=== PATIENT | male | born 1990 ===

== ENCOUNTER 2017-02-05 20:24 | Emergency (ER) | payer MEDICAID ==
[2017-02-05 20:32] VITALS: BP 146/89; PULSE 92; RESP 16; TEMP 98.1; O2SAT 98
--- NOTE | 2017-02-06 00:04 | C.PDOC ---
History Of Present Illness 26 y/o male with a HX of epilepsy, presents to the ER for med refill of phenobarbital. Patient was released from longterm on 01/21/17 and reports several seizures since his release. He notes running out of phenobarbital, which prompted this visit. Patient has no somatic complaints at this time. pt still has tegretol. Time Seen by Provider: 02/05/17 21:41 Chief Complaint (Nursing): Med Refill History Per: Patient History/Exam Limitations: no limitations Severity: None Recent travel outside of the [place]: No Additional History Per: Patient Past Medical History Reviewed: Historical Data, Nursing Documentation, Vital Signs Vital Signs: Last Vital Signs Temp 98.1 F 02/05/17 20:25 Pulse 92 H 02/05/17 20:25 Resp 16 02/05/17 20:25 BP 146/89 02/05/17 20:25 Pulse Ox 98 02/07/17 10:15 - Medical History PMH: Asthma, HTN, Seizures Family History: States: Unknown Family Hx - Social History Hx Alcohol Use: No Hx Substance Use: No - Immunization History Hx Tetanus Toxoid Vaccination: No Hx Influenza Vaccination: No Hx Pneumococcal Vaccination: No Review Of Systems Constitutional: Negative for: Other (Head injury) Cardiovascular: Negative for: Chest Pain Respiratory: Negative for: Cough Neurological: Positive for: Seizures (several seziures in last 1-2 weeks, none today). Negative for: Confusion, Altered Mental Status, Headache, Dizziness Physical Exam - Physical Exam Appears: Non-toxic, No Acute Distress Skin: Warm, Dry Head: Atraumatic, Normacephalic Chest: Symmetrical, No Tenderness Cardiovascular: Rhythm Regular, No Murmur Respiratory: Normal Breath Sounds, No Wheezing Gastrointestinal/Abdominal: Soft, No Tenderness Neurological/Psych: Oriented x3, Normal Speech, Normal Cognition, Normal Cranial Nerves, Normal Motor, Normal Sensation, Other (NO focal deficit) ED Course And Treatment O2 Sat by Pulse Oximetry: 98 (RA) Pulse Ox Interpretation: Normal Medical Decision Making Medical Decision Making: Impression: 26 y/o male here for med refill of phenobarbital. Plans: * Refill of meds * Labs for phenobarbital pt reports being compliant with medications; sts he was released from longterm on jan 21, and has had seizures since then. Tegretol level in range; phenobarb level sent out. pt sts he has Tegretol at home, will give rx for one week phenobarb with clinic and neuro f/u Disposition Counseled Patient/Family Regarding: Studies Performed, Diagnosis, Need For Followup, Rx Given - Disposition Referrals: Mohan Barkley MD [Staff Provider] - [facility] [Outside] [facility] [Outside] Disposition: HOME/ ROUTINE Disposition Time: 00:04 Condition: STABLE Additional Instructions: Take medications as prescribed. Call clinic and Dr Barkley on morning to make soonest appointments. Return to ER for any worsening symptoms. Prescriptions: Phenobarbital 97.2 mg PO BID #14 tablet Instructions: Phenobarbital (By mouth) Forms: [facility] (Sudanese), General Discharge Instructions - Clinical Impression Clinical Impression: Encounter for medication refill - Scribe Statement The provider has reviewed the documentation as recorded by the Scribe Son rizzo All medical record entries made by the Scribe were at my direction and personally dictated by me. I have reviewed the chart and agree that the record accurately reflects my personal performance of the history, physical exam, medical decision making, and the department course for this patient. I have also personally directed, reviewed, and agree with the discharge instructions and disposition.
== END 2017-02-06 00:11 | disposition home or self-care (01) ==
LOC: C.ER 20:24
DX: Z76.0 Encounter for issue of repeat prescription (principal)

== ENCOUNTER 2017-03-31 19:24 | Inpatient (IN) | payer MEDICAID ==
[2017-03-31] MEDS ORDERED: Sodium Chloride 0.9% 1,000 ML IV ONE (19:59)
--- NOTE | 2017-03-31 20:03 | C.PDOC ---
History Of Present Illness 26 year old male who presents to the ER after having a seizure earlier today. Patient also had a generalized tonic clonic seizure while in the ER; 2ml of ativan administered. Patient was released from long term on 01/30 and takes phenobarb. Patient has not verbalized any complaints at this time. Time Seen by Provider: 03/31/17 19:59 Chief Complaint (Nursing): Weakness/Neurological Deficit History Per: Patient History/Exam Limitations: no limitations Onset/Duration Of Symptoms: Hrs Current Symptoms Are (Timing): Worse Activity At Onset Of Symptoms: Lying (While in ER), Other (Not known(earlier today)) Seizure Or Post-ictal Symptoms: Generalized Seizure Activity. denies: Post- ictal Period Possible Causative Factor(s): Other (Not known) Severity: Mild Pain Scale Rating Of: 4 Recent travel outside of the [place]: No - Symptoms Of CVA Associated Symptoms: denies: Impaired Speech, Seizure Activity, New Vision Deficit(Left), New Vision Deficit(Right), Decreased Ability To Walk, New Confusion Past Medical History Reviewed: Historical Data, Nursing Documentation, Vital Signs Vital Signs: Last Vital Signs Temp 97.7 F 03/31/17 19:36 Pulse 66 03/31/17 21:06 Resp 18 03/31/17 21:06 BP 143/74 03/31/17 21:06 Pulse Ox 100 03/31/17 21:06 - Medical History PMH: Asthma, HTN, Seizures Surgical History: No Surg Hx Family History: States: No Known Family Hx - Social History Hx Alcohol Use: No Hx Substance Use: No - Immunization History Hx Tetanus Toxoid Vaccination: No Hx Influenza Vaccination: No Hx Pneumococcal Vaccination: No Review Of Systems Constitutional: Negative for: Fever Eyes: Negative for: Redness Cardiovascular: Negative for: Chest Pain Respiratory: Negative for: Shortness of Breath, Wheezing Gastrointestinal: Negative for: Vomiting Musculoskeletal: Negative for: Back Pain Skin: Negative for: Rash Neurological: Positive for: Seizures Physical Exam - Physical Exam Appears: In Acute Distress Skin: Warm, Dry Head: Normacephalic Eye(s): bilateral: Normal Inspection Oral Mucosa: Moist Neck: Supple Chest: Symmetrical Cardiovascular: Rhythm Regular Respiratory: No Rales, No Rhonchi, No Wheezing Gastrointestinal/Abdominal: Soft, No Tenderness Back: No CVA Tenderness Extremity: Normal ROM Extremity: Bilateral: Atraumatic, Normal Color And Temperature Pulses: Left Dorsalis Pedis: Normal, Right Dorsalis Pedis: Normal Neurological/Psych: Oriented x3, Other (post ictal) Gait: Unable To Assess ED Course And Treatment - Laboratory Results Result Diagrams: 03/31/17 20:16 03/31/17 20:16 O2 Sat by Pulse Oximetry: 96 (Room air) Pulse Ox Interpretation: Normal Progress Note: Blood work and urinalysis ordered. Ativan and IV fluids administered. Critical Care Time - Critical Care Note Total Time (in mins): 30 Documented critical care: time excludes all time spent performing seperately billable procedures. Disposition Discussed With : Boris Milian Comment: accepted the pt on his service and took over the care at 10:06 PM Doctor Will See Patient In The: ED Counseled Patient/Family Regarding: Studies Performed, Diagnosis - Disposition Disposition: HOSPITALIZED Disposition Time: 20:02 Condition: GUARDED Forms: [facility] (Romanian) - Clinical Impression Clinical Impression: Intractable seizure disorder - Scribe Statement The provider has reviewed the documentation as recorded by the Scribe Alistair Benoit All medical record entries made by the Scribe were at my direction and personally dictated by me. I have reviewed the chart and agree that the record accurately reflects my personal performance of the history, physical exam, medical decision making, and the department course for this patient. I have also personally directed, reviewed, and agree with the discharge instructions and disposition.
[2017-03-31 20:22] LABS: BASO % 0.5 % (0.0-2.0); EOS # 0.1 K/uL (0.0-0.7); EOS % 1.9 % (0.0-4.0); HEMATOCRIT 44.9 % (35.0-51.0); LYMPH # 1.8 K/uL (1.0-4.3); LYMPH % 22.9 % (20.0-40.0); MEAN CELL VOLUME 78.7 fL (80.0-94.0); MEAN CORPUSCULAR HEMOGLOBIN 26.1 pg (27.0-31.0); MEAN CORPUSCULAR HGB CONC 33.2 g/dL (33.0-37.0); MEAN PLATELET VOLUME 8.3 fL (7.2-11.7); MONO # 0.9 K/uL (0.0-0.8); MONO % 11.4 % (0.0-10.0); RED CELL DISTRIBUTION WIDTH 15.2 % (11.5-14.5); WHITE BLOOD COUNT 7.9 K/uL (4.8-10.8)
[2017-03-31 20:30] LABS: CHLORIDE 104 mmol/L (98-107)
[2017-03-31 20:31] LABS: POTASSIUM 4.5 mmol/L (3.6-5.2); SODIUM 136 mmol/L (132-148)
[2017-03-31 20:33] LABS: ALB/GLOB RATIO 1.2 (1.0-2.1); BILIRUBIN,TOTAL 0.6 mg/dL (0.2-1.3); CARBON DIOXIDE 22 mmol/L (22-30); GFR AFRICAN-AMERICAN > 60; TOTAL PROTEIN 8.5 g/dL (6.3-8.3)
[2017-03-31 20:34] LABS: ALCOHOL SERUM < 10 mg/dl (0-10); ALKALINE PHOSPHATASE 94 U/L (38-126); ALT/SGPT 73 U/L (21-72); AST/SGOT 44 U/L (17-59); BLOOD UREA NITROGEN 20 mg/dL (9-20); CALCIUM 9.3 mg/dl (8.6-10.4); GLUCOSE,RANDOM 70 mg/dL (75-110)
[2017-03-31 21:12] LABS: URINE BACTERIA RARE (<OCC); URINE BILIRUBIN NEGATIVE (NEGATIVE); URINE BLOOD NEGATIVE (NEGATIVE); URINE COLOR Yellow (YELLOW); URINE GLUCOSE (UA) NORMAL (Normal); URINE KETONE NEGATIVE (NEGATIVE); URINE LEUKOCYTE ESTERASE NEG Leu/uL (Negative); URINE PROTEIN NEGATIVE (NEGATIVE); URINE UROBILINOGEN NORMAL mg/dL (0.2-1.0); WBC URINE 1 /hpf (0-5)
[2017-03-31 21:15] LABS: RBC URINE 4 /hpf (0-3)
--- NOTE | 2017-03-31 22:16 | CP.PCM.CON ---
History of Present Illness - History of Present Illness History of Present Illness: 26 y/o male with h/o HTN and Siezure brought in following sizure.Patient states that he was walking and had siezure,unsure whether he fell or hurt himself. Has frequent siezures,admitted last month with siezures.States he is compliant with meds and denies drug use.Urine toxicology is positive for coccaine and Barbiturates.Patient had a generalized siezure in ER,recieved lorazepam and Phenobarbital uses clonidine PRN for HTN ."takes medications when he starts sweating" while talking he wanted to know how much ativan he had got Review of Systems - Constitutional Constitutional: absent: Anorexia, Chills, Fever, Lethargy - EENT Eyes: absent: Blurred Vision, Photophobia Ears: absent: Decreased Hearing, Dizziness Nose/Mouth/Throat: absent: Nasal Congestion, Dry Mouth, Tongue Swelling, Neck Pain - Cardiovascular Cardiovascular: absent: Chest Pain, Chest Pain with Activity, Edema, Orthopnea - Respiratory Respiratory: absent: Cough, Dyspnea, Dyspnea on Exertion - Gastrointestinal Gastrointestinal: absent: Abdominal Pain, Loose Stools, Nausea, Vomiting - Genitourinary Genitourinary: absent: Change in Urinary Stream, Hematuria - Integumentary Integumentary: absent: Bleeding Lesions, Dry Skin - Neurological Neurological: absent: Abnormal Hearing, Abnormal Speech, Confusion, Dizziness, Numbness, Focal Weakness, Memory Loss - Endocrine Endocrine: absent: Polyphagia, Polyuria - Hematologic/Lymphatic Hematologic: absent: Easy Bleeding Past Patient History - Past Social History Smoking Status: Light Smoker < 10 Cigarettes Daily Alcohol: None Drugs: Denies, Other (urine toxicology positive) Home Situation {Lives}: With Family - CARDIAC Hx Hypertension: Yes - PULMONARY Hx Asthma: Yes - NEUROLOGICAL Hx Seizures: Yes - PSYCHIATRIC Hx Substance Use: No - SURGICAL HISTORY Hx Surgeries: No Meds Allergies/Adverse Reactions: Allergies Allergy/AdvReac Type Severity Reaction Status Date / Time seafood Allergy Mild Uncoded 03/31/17 19:41 - Medications Medications: Current Medications Carbamazepine (Tegretol-Xr) 200 mg PO Q12 LIZ Physical Exam - Constitutional Appears: Non-toxic, No Acute Distress - Head Exam Head Exam: ATRAUMATIC, NORMAL INSPECTION, NORMOCEPHALIC - Eye Exam Eye Exam: EOMI, PERRL. absent: Nystagmus, Scleral icterus Pupil Exam: NORMAL ACCOMODATION - ENT Exam ENT Exam: Mucous Membranes Moist, Normal Exam - Neck Exam Neck exam: Positive for: Full Rom, Normal Inspection - Respiratory Exam Respiratory Exam: Clear to Auscultation Bilateral, NORMAL BREATHING PATTERN. absent: Rhonchi, Wheezes - Cardiovascular Exam Cardiovascular Exam: REGULAR RHYTHM. absent: JVD - GI/Abdominal Exam GI & Abdominal Exam: Normal Bowel Sounds, Soft. absent: Organomegaly, Tenderness - Rectal Exam Rectal Exam: Deferred - Extremities Exam Extremities exam: Positive for: full ROM, normal inspection, pedal pulses present. Negative for: calf tenderness - Back Exam Back exam: NORMAL INSPECTION - Neurological Exam Neurological exam: Alert, CN II-XII Intact, Oriented x3, Reflexes Normal - Psychiatric Exam Psychiatric exam: Normal Affect - Skin Skin Exam: Normal Color, Warm Results - Vital Signs Recent Vital Signs: Last Vital Signs Temp 97.7 F 03/31/17 19:36 Pulse 66 03/31/17 21:06 Resp 18 03/31/17 21:06 BP 143/74 03/31/17 21:06 Pulse Ox 96 03/31/17 22:12 - Labs Result Diagrams: 03/31/17 20:16 03/31/17 20:16 Labs: Laboratory Results - last 24 hr 03/31/17 03/31/17 03/31/17 20:02 20:16 20:16 WBC 7.9 RBC 5.71 Hgb 14.9 Hct 44.9 MCV 78.7 L MCH 26.1 L MCHC 33.2 RDW 15.2 H Plt Count 278 MPV 8.3 Neut % (Auto) 63.3 Lymph % (Auto) 22.9 [place] % (Auto) 11.4 H Eos % (Auto) 1.9 Baso % (Auto) 0.5 Neut # 5.0 Lymph # 1.8 [place] # 0.9 H Eos # 0.1 Baso # 0.0 Sodium 136 Potassium 4.5 Chloride 104 Carbon Dioxide 22 Anion Gap 14 BUN 20 Creatinine 1.0 Est GFR ( Amer) > 60 Est GFR (Non-Af Amer) > 60 POC Glucose (mg/dL) 52 L Random Glucose 70 L Calcium 9.3 Total Bilirubin 0.6 AST 44 ALT 73 H Alkaline Phosphatase 94 Total Protein 8.5 H Albumin 4.7 Globulin 3.9 Albumin/Globulin Ratio 1.2 Urine Color Urine Clarity Urine pH Ur Specific [place] Urine Protein Urine Glucose (UA) Urine Ketones Urine Blood Urine Nitrate Urine Bilirubin Urine Urobilinogen Ur Leukocyte Esterase Urine WBC (Auto) Urine RBC (Auto) Urine Bacteria Urine Opiates Screen Urine Methadone Screen Ur Barbiturates Screen Carbamazepine Ur Phencyclidine Scrn Ur Amphetamines Screen U Benzodiazepines Scrn U Oth Cocaine Metabols U Cannabinoids Screen Alcohol, Quantitative < 10 03/31/17 03/31/17 03/31/17 20:16 20:41 20:41 WBC RBC Hgb Hct MCV MCH MCHC RDW Plt Count MPV Neut % (Auto) Lymph % (Auto) [place] % (Auto) Eos % (Auto) Baso % (Auto) Neut # Lymph # [place] # Eos # Baso # Sodium Potassium Chloride Carbon Dioxide Anion Gap BUN Creatinine Est GFR ( Amer) Est GFR (Non-Af Amer) POC Glucose (mg/dL) Random Glucose Calcium Total Bilirubin AST ALT Alkaline Phosphatase Total Protein Albumin Globulin Albumin/Globulin Ratio Urine Color Yellow Urine Clarity Clear Urine pH 5.0 Ur Specific [place] 1.027 Urine Protein Negative Urine Glucose (UA) Normal Urine Ketones Negative Urine Blood Negative Urine Nitrate Negative Urine Bilirubin Negative Urine Urobilinogen Normal Ur Leukocyte Esterase Neg Urine WBC (Auto) 1 Urine RBC (Auto) 4 H Urine Bacteria Rare Urine Opiates Screen Negative Urine Methadone Screen Negative Ur Barbiturates Screen Positive Carbamazepine 8.9 Ur Phencyclidine Scrn Negative Ur Amphetamines Screen Negative U Benzodiazepines Scrn Negative U Oth Cocaine Metabols Positive U Cannabinoids Screen Negative Alcohol, Quantitative 03/31/17 21:12 WBC RBC Hgb Hct MCV MCH MCHC RDW Plt Count MPV Neut % (Auto) Lymph % (Auto) [place] % (Auto) Eos % (Auto) Baso % (Auto) Neut # Lymph # [place] # Eos # Baso # Sodium Potassium Chloride Carbon Dioxide Anion Gap BUN Creatinine Est GFR ( Amer) Est GFR (Non-Af Amer) POC Glucose (mg/dL) 81 Random Glucose Calcium Total Bilirubin AST ALT Alkaline Phosphatase Total Protein Albumin Globulin Albumin/Globulin Ratio Urine Color Urine Clarity Urine pH Ur Specific [place] Urine Protein Urine Glucose (UA) Urine Ketones Urine Blood Urine Nitrate Urine Bilirubin Urine Urobilinogen Ur Leukocyte Esterase Urine WBC (Auto) Urine RBC (Auto) Urine Bacteria Urine Opiates Screen Urine Methadone Screen Ur Barbiturates Screen Carbamazepine Ur Phencyclidine Scrn Ur Amphetamines Screen U Benzodiazepines Scrn U Oth Cocaine Metabols U Cannabinoids Screen Alcohol, Quantitative - Imaging and Cardiology Chest x-ray Additional comment: ordered Assessment & Plan - Assessment and Plan (Free Text) Assessment: 1.Siezure Disorder admitted with recurrent siezures.?compliance states he is on phenobarb and tegretol reveived IV ativan and Phenobarb in ER will start PO meds 2.HTN-will f/u and start meds as needed 3.Drug abuse-Toxicology positive,patient denies use even after informing of results 4.R/o Hepatitis-drug abuse,increased protien and ALT
--- NOTE | 2017-03-31 22:49 | CT ---
EXAM: CT Head Without Intravenous Contrast CLINICAL HISTORY: 26 years old, male; Signs and symptoms; Syncope and collapse; Additional info: Seizure, fall TECHNIQUE: Axial computed tomography images of the head/brain without intravenous contrast. All CT scans at this facility use one or more dose reduction techniques, viz.: automated exposure control; ma/kV adjustment per patient size (including targeted exams where dose is matched to indication; i.e. head); or iterative reconstruction technique. COMPARISON: No relevant prior studies available. FINDINGS: Brain: No acute intracranial hemorrhage. No significant white matter disease. No edema. Ventricles: No significant ventriculomegaly. Bones: No acute displaced fracture. Sinuses: Unremarkable as visualized. No acute sinusitis. Mastoid air cells: Unremarkable as visualized. No mastoid effusion. IMPRESSION: No acute intracranial hemorrhage, or suspicious mass effect.
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
[2017-04-01 06:39] LABS: BASO % 0.4 % (0.0-2.0); EOS # 0.1 K/uL (0.0-0.7); EOS % 1.4 % (0.0-4.0); HEMATOCRIT 40.9 % (35.0-51.0); LYMPH # 1.9 K/uL (1.0-4.3); LYMPH % 21.7 % (20.0-40.0); MEAN CELL VOLUME 79.6 fL (80.0-94.0); MEAN CORPUSCULAR HEMOGLOBIN 26.6 pg (27.0-31.0); MEAN CORPUSCULAR HGB CONC 33.4 g/dL (33.0-37.0); MEAN PLATELET VOLUME 8.1 fL (7.2-11.7); MONO # 0.5 K/uL (0.0-0.8); MONO % 6.1 % (0.0-10.0)
[2017-04-01 06:49] LABS: CHLORIDE 104 mmol/L (98-107); POTASSIUM 3.7 mmol/L (3.6-5.2); SODIUM 136 mmol/L (132-148)
[2017-04-01 06:51] LABS: AST/SGOT 28 U/L (17-59); BILIRUBIN,TOTAL 0.3 mg/dL (0.2-1.3); CARBON DIOXIDE 22 mmol/L (22-30); GFR AFRICAN-AMERICAN > 60
[2017-04-01 06:52] LABS: ALKALINE PHOSPHATASE 83 U/L (38-126); ALT/SGPT 67 U/L (21-72); BLOOD UREA NITROGEN 14 mg/dL (9-20); CALCIUM 8.9 mg/dl (8.6-10.4); GLUCOSE,RANDOM 92 mg/dL (75-110); MAGNESIUM 1.9 mg/dL (1.6-2.3); PHOSPHOROUS 3.7 mg/dL (2.5-4.5); TOTAL PROTEIN 7.3 g/dL (6.3-8.3)
--- NOTE | 2017-04-01 08:40 | RAD ---
PROCEDURE: CHEST RADIOGRAPH, 1 VIEW HISTORY: Seizures COMPARISON: 03/31/2017 FINDINGS: LUNGS: Mild venous congestion. Patchy increased linear markings seen at the left lung base. Right paratracheal airspace opacity may represent prominent vasculature. PLEURA: No pneumothorax or pleural fluid seen. CARDIOVASCULAR: Normal. OSSEOUS STRUCTURES: No significant abnormalities. VISUALIZED UPPER ABDOMEN: Normal. OTHER FINDINGS: None. IMPRESSION: Mild venous congestion. Patchy increased linear markings seen at the left lung base. Right paratracheal airspace opacity may represent prominent vasculature.
[2017-04-01 08:45] LABS: HEPATITIS A TOTAL ANTIBODY POS (NEGATIVE)
[2017-04-01] MEDS: Magnesium Sulfate 1 gm in D5W 1 GM/100 ML BAG IVPB SCH ×2 (08:50→09:23)
--- NOTE | 2017-04-01 08:57 | CP.PCM.PN ---
Subjective - Date & Time of Evaluation Date of Evaluation: 04/01/17 Time of Evaluation: 08:40 - Subjective Subjective: Hospitalist Progress Note Patient was seen and examined at 8:40 AM ICU Bed #4 26 year old male who was admitted to the ICU 03/31/17 after he stated that he experienced a Seizure. States that he is compliant with his Seizure medications. CT Head showed NO acute intracranial hemorrhage/mass effect. [facility] and was supposed to start mental health/ substance abuse program 04/01/17. Currently upon FULL ROS: NO chest pain NO palpitations NO SOB/Cough NO dysphagia/odynophagia NO abdominal pain NO n/v/d/c (last bowel movement was yesterday and it was normal) NO new changes in vision NO new changes in hearing NO edema NO paresthesias Headache bifrontal last night States that dizziness comes and goes Exam: HEENT: NCA, EOMI, PERRLA, NO cervical lymphadenopathy, NO thyromegaly, NO pharyngeal erythema/exudate, Nasal turbinates are moist/nonerythematous/ nonedematous Cardio: NS1 and NS2, NO M/R/G Respiratory: CTA B/L, NO R/R/W GI: BSx4, Soft, NT, ND, NO HSM, Central ObesityNO guarding/rebound tenderness Ext: Pulses are strong and equal, Capillary Refill is 2 seconds, NO edema Neuro: CN II through XII are grossly intact. Assessment and Plan: 1). Seizure Carbemazepine 200 mg PO Q12H Phenobarbital 97.2 mg PO 2x/day CT Head 03/31/17 showed NO acute intracranial hemorrhage/mass effect F/U further recommendations from Neurology Dr. Mariscal and if cleared by Neurology then will discharge patient Patient stated that he saw his PMD Dr. Williamson on [facility] earlier this month however patient could not provide contact information. I performed Google Search and Found Dr. Thang Williamson [phone] and spoke with Merle at the office and she confirmed that the patient was seen by Dr. Williamson 03/21/17 and that the patient is on the following medications at home: Clonidine 0.3 mg PO 1 tab 2x/day Tegretol ER 400 mg 1 tab PO 2x/day Phenobarbitol 97.2 mg PO 2x/day 2). Cocaine Abuse Urine Drug Screen positive for Cocaine Patient states that he does not do this anymore when I suggested to him that the possible cause of his off/on dizziness and seizure could be the Cocaine abuse. He stated that he does not do Cociane and he would like his UDS repeated and it has been ordered. 3). Anxiety/Depression Home medication list indicated that patient is on Sertraline 100 mg PO 1x/day and Klonopin 0.5 mg PO HS. However these were not on the medication list provided to me by his PMD office mentioned above. ICU Resident Dr. Mercado contacted patient's pharmacies ([email or web address]) to confirm these medications and both pharmacies have no record of any medications being dispensed to this patient. F/U further recommendations from Psychatiry Dr. Boyle 4). Bipolar Disorder See Assessment and Plan #3. 5). Hx Substance Abuse See Assessment and Plan #2 6). HTN ICU resident will confirm medication with Pharmacy 7). Elevated ALT Now normalized 8). Prophylaxis Pepcid 20 mg PO 1x/day Bilateral SCDs Sha Sher D.O. Objective - Vital Signs/Intake and Output Vital Signs (last 24 hours): Temp Pulse Resp BP Pulse Ox 97.4 F L 73 23 144/81 99 04/01/17 08:00 04/01/17 08:02 04/01/17 08:02 04/01/17 08:02 04/01/17 08:02 Intake and Output: 04/01/17 04/01/17 06:59 18:59 Intake Total 1290 Output Total 700 Balance 590 - Medications Medications: Current Medications Carbamazepine (Tegretol-Xr) 200 mg PO Q12 [facility] Last Admin: 03/31/17 22:10 Dose: 200 mg Famotidine (Pepcid) 20 mg PO DAILY [facility] Magnesium Sulfate/Dextrose (Magnesium Sulfate 1 Gm/100 Ml D5w) 1 gm in 100 mls @ 300 mls/hr IVPB Q30M [facility] Stop: 04/01/17 09:19 Last Admin: 04/01/17 08:50 Dose: 300 mls/hr Phenobarbital (Phenobarbital Tab) 97.2 mg PO BID [facility] Last Admin: 03/31/17 23:49 Dose: 97.2 mg Pneumococcal Polyvalent Vaccine (Pneumovax 23 Vaccine) 0.5 ml IM .ONCE ONE Stop: 04/03/17 10:01 - Labs Labs: 04/01/17 06:28 04/01/17 06:28
[2017-04-01 12:12] VITALS: BP 132/91; PULSE 75; RESP 22; O2SAT 95
[2017-04-01 12:17] VITALS: TEMP 97.5
--- NOTE | 2017-04-01 13:37 | CP.PCM.CON ---
History of Present Illness - History of Present Illness History of Present Illness: Mr. Chowdary is a 26-year-old man with a past medical history of epilepsy, on phenobarbital and carbamazepine, who was recently released from senior living, but had an episode of aura of tasting blood, visual hallucinations, confusion and subsequently fell and had a generalized tonic clonic seizure. He had another seizure this morning for which he was treated and is currently at baseline. Review of Systems - Review of Systems All systems: reviewed and no additional remarkable complaints except Past Patient History - Past Medical History & Family History Past Medical History?: Yes - Past Social History Smoking Status: Light Smoker < 10 Cigarettes Daily Alcohol: None Drugs: Denies, Other (urine toxicology positive) Home Situation {Lives}: With Family - CARDIAC Hx Hypertension: Yes - PULMONARY Hx Asthma: Yes - NEUROLOGICAL Hx Seizures: Yes - HEENT Hx HEENT Problems: No - RENAL Hx Chronic Kidney Disease: No - ENDOCRINE/METABOLIC Hx Endocrine Disorders: No - HEMATOLOGICAL/ONCOLOGICAL Hx Blood Disorders: No - INTEGUMENTARY Hx Dermatological Problems: No - MUSCULOSKELETAL/RHEUMATOLOGICAL Hx Falls: Yes - GASTROINTESTINAL Hx Gastrointestinal Disorders: No - GENITOURINARY/GYNECOLOGICAL Hx Genitourinary Disorders: No - PSYCHIATRIC Hx Substance Use: No - SURGICAL HISTORY Hx Surgeries: No - ANESTHESIA Hx Anesthesia: No Hx Anesthesia Reactions: No Meds Allergies/Adverse Reactions: Allergies Allergy/AdvReac Type Severity Reaction Status Date / Time seafood Allergy Mild Uncoded 03/31/17 19:41 - Medications Medications: Current Medications Carbamazepine (Tegretol-Xr) 200 mg PO Q12 [facility] Last Admin: 04/01/17 11:06 Dose: 200 mg Famotidine (Pepcid) 20 mg PO DAILY [facility] Last Admin: 04/01/17 11:06 Dose: 20 mg Phenobarbital (Phenobarbital Tab) 97.2 mg PO BID [facility] Last Admin: 04/01/17 11:06 Dose: 97.2 mg Pneumococcal Polyvalent Vaccine (Pneumovax 23 Vaccine) 0.5 ml IM .ONCE ONE Stop: 04/03/17 10:01 Physical Exam - Constitutional Appears: Well - Head Exam Head Exam: ATRAUMATIC, NORMAL INSPECTION, NORMOCEPHALIC - Eye Exam Eye Exam: EOMI, Normal appearance, PERRL - ENT Exam ENT Exam: Mucous Membranes Moist, Normal Exam - Neck Exam Neck exam: Positive for: Normal Inspection - Respiratory Exam Respiratory Exam: Clear to Auscultation Bilateral, NORMAL BREATHING PATTERN - Cardiovascular Exam Cardiovascular Exam: REGULAR RHYTHM - Rectal Exam Rectal Exam: Deferred - Extremities Exam Extremities exam: Positive for: normal inspection - Back Exam Back exam: NORMAL INSPECTION - Psychiatric Exam Psychiatric exam: Normal Affect, Normal Mood - Skin Skin Exam: Dry, Intact, Normal Color, Warm Results - Vital Signs Recent Vital Signs: Last Vital Signs Temp 97.5 F L 04/01/17 12:00 Pulse 75 04/01/17 12:01 Resp 22 04/01/17 12:01 BP 132/91 H 04/01/17 12:01 Pulse Ox 95 04/01/17 12:01 - Labs Result Diagrams: 04/01/17 06:28 04/01/17 06:28 Labs: Laboratory Results - last 24 hr 03/31/17 03/31/17 03/31/17 20:02 20:16 20:16 WBC 7.9 RBC 5.71 Hgb 14.9 Hct 44.9 MCV 78.7 L MCH 26.1 L MCHC 33.2 RDW 15.2 H Plt Count 278 MPV 8.3 Neut % (Auto) 63.3 Lymph % (Auto) 22.9 [place] % (Auto) 11.4 H Eos % (Auto) 1.9 Baso % (Auto) 0.5 Neut # 5.0 Lymph # 1.8 [place] # 0.9 H Eos # 0.1 Baso # 0.0 Sodium 136 Potassium 4.5 Chloride 104 Carbon Dioxide 22 Anion Gap 14 BUN 20 Creatinine 1.0 Est GFR ( Amer) > 60 Est GFR (Non-Af Amer) > 60 POC Glucose (mg/dL) 52 L Random Glucose 70 L Calcium 9.3 Phosphorus Magnesium Total Bilirubin 0.6 AST 44 ALT 73 H Alkaline Phosphatase 94 Total Protein 8.5 H Albumin 4.7 Globulin 3.9 Albumin/Globulin Ratio 1.2 Urine Color Urine Clarity Urine pH Ur Specific [place] Urine Protein Urine Glucose (UA) Urine Ketones Urine Blood Urine Nitrate Urine Bilirubin Urine Urobilinogen Ur Leukocyte Esterase Urine WBC (Auto) Urine RBC (Auto) Urine Bacteria Urine Opiates Screen Urine Methadone Screen Ur Barbiturates Screen Carbamazepine Ur Phencyclidine Scrn Ur Amphetamines Screen U Benzodiazepines Scrn U Oth Cocaine Metabols U Cannabinoids Screen Alcohol, Quantitative < 10 Hepatitis A Ab Total Hep Bs Antigen Hep Bs Antibody Hepatitis C Antibody 03/31/17 03/31/17 03/31/17 20:16 20:41 20:41 WBC RBC Hgb Hct MCV MCH MCHC RDW Plt Count MPV Neut % (Auto) Lymph % (Auto) [place] % (Auto) Eos % (Auto) Baso % (Auto) Neut # Lymph # [place] # Eos # Baso # Sodium Potassium Chloride Carbon Dioxide Anion Gap BUN Creatinine Est GFR ( Amer) Est GFR (Non-Af Amer) POC Glucose (mg/dL) Random Glucose Calcium Phosphorus Magnesium Total Bilirubin AST ALT Alkaline Phosphatase Total Protein Albumin Globulin Albumin/Globulin Ratio Urine Color Yellow Urine Clarity Clear Urine pH 5.0 Ur Specific [place] 1.027 Urine Protein Negative Urine Glucose (UA) Normal Urine Ketones Negative Urine Blood Negative Urine Nitrate Negative Urine Bilirubin Negative Urine Urobilinogen Normal Ur Leukocyte Esterase Neg Urine WBC (Auto) 1 Urine RBC (Auto) 4 H Urine Bacteria Rare Urine Opiates Screen Negative Urine Methadone Screen Negative Ur Barbiturates Screen Positive Carbamazepine 8.9 Ur Phencyclidine Scrn Negative Ur Amphetamines Screen Negative U Benzodiazepines Scrn Negative U Oth Cocaine Metabols Positive U Cannabinoids Screen Negative Alcohol, Quantitative Hepatitis A Ab Total Hep Bs Antigen Hep Bs Antibody Hepatitis C Antibody 03/31/17 03/31/17 03/31/17 21:12 22:27 22:27 WBC RBC Hgb Hct MCV MCH MCHC RDW Plt Count MPV Neut % (Auto) Lymph % (Auto) [place] % (Auto) Eos % (Auto) Baso % (Auto) Neut # Lymph # [place] # Eos # Baso # Sodium Potassium Chloride Carbon Dioxide Anion Gap BUN Creatinine Est GFR ( Amer) Est GFR (Non-Af Amer) POC Glucose (mg/dL) 81 Random Glucose Calcium Phosphorus Magnesium 1.8 Total Bilirubin AST ALT Alkaline Phosphatase Total Protein Albumin Globulin Albumin/Globulin Ratio Urine Color Urine Clarity Urine pH Ur Specific [place] Urine Protein Urine Glucose (UA) Urine Ketones Urine Blood Urine Nitrate Urine Bilirubin Urine Urobilinogen Ur Leukocyte Esterase Urine WBC (Auto) Urine RBC (Auto) Urine Bacteria Urine Opiates Screen Urine Methadone Screen Ur Barbiturates Screen Carbamazepine 6.8 Ur Phencyclidine Scrn Ur Amphetamines Screen U Benzodiazepines Scrn U Oth Cocaine Metabols U Cannabinoids Screen Alcohol, Quantitative Hepatitis A Ab Total Hep Bs Antigen Hep Bs Antibody Hepatitis C Antibody 04/01/17 04/01/17 04/01/17 06:28 06:28 06:28 WBC 9.0 RBC 5.14 Hgb 13.7 Hct 40.9 MCV 79.6 L MCH 26.6 L MCHC 33.4 RDW 15.0 H Plt Count 259 MPV 8.1 Neut % (Auto) 70.4 Lymph % (Auto) 21.7 [place] % (Auto) 6.1 Eos % (Auto) 1.4 Baso % (Auto) 0.4 Neut # 6.3 Lymph # 1.9 [place] # 0.5 Eos # 0.1 Baso # 0.0 Sodium 136 Potassium 3.7 Chloride 104 Carbon Dioxide 22 Anion Gap 14 BUN 14 Creatinine 0.8 Est GFR ( Amer) > 60 Est GFR (Non-Af Amer) > 60 POC Glucose (mg/dL) Random Glucose 92 Calcium 8.9 Phosphorus 3.7 Magnesium 1.9 Total Bilirubin 0.3 AST 28 ALT 67 Alkaline Phosphatase 83 Total Protein 7.3 Albumin 3.7 Globulin 3.6 Albumin/Globulin Ratio 1.0 Urine Color Urine Clarity Urine pH Ur Specific [place] Urine Protein Urine Glucose (UA) Urine Ketones Urine Blood Urine Nitrate Urine Bilirubin Urine Urobilinogen Ur Leukocyte Esterase Urine WBC (Auto) Urine RBC (Auto) Urine Bacteria Urine Opiates Screen Urine Methadone Screen Ur Barbiturates Screen Carbamazepine Ur Phencyclidine Scrn Ur Amphetamines Screen U Benzodiazepines Scrn U Oth Cocaine Metabols U Cannabinoids Screen Alcohol, Quantitative Hepatitis A Ab Total Hep Bs Antigen Hep Bs Antibody Positive Hepatitis C Antibody 04/01/17 04/01/17 04/01/17 06:28 06:28 10:12 WBC RBC Hgb Hct MCV MCH MCHC RDW Plt Count MPV Neut % (Auto) Lymph % (Auto) [place] % (Auto) Eos % (Auto) Baso % (Auto) Neut # Lymph # [place] # Eos # Baso # Sodium Potassium Chloride Carbon Dioxide Anion Gap BUN Creatinine Est GFR ( Amer) Est GFR (Non-Af Amer) POC Glucose (mg/dL) Random Glucose Calcium Phosphorus Magnesium Total Bilirubin AST ALT Alkaline Phosphatase Total Protein Albumin Globulin Albumin/Globulin Ratio Urine Color Urine Clarity Urine pH Ur Specific [place] Urine Protein Urine Glucose (UA) Urine Ketones Urine Blood Urine Nitrate Urine Bilirubin Urine Urobilinogen Ur Leukocyte Esterase Urine WBC (Auto) Urine RBC (Auto) Urine Bacteria Urine Opiates Screen Negative Urine Methadone Screen Negative Ur Barbiturates Screen Positive Carbamazepine Ur Phencyclidine Scrn Negative Ur Amphetamines Screen Negative U Benzodiazepines Scrn Negative U Oth Cocaine Metabols Positive U Cannabinoids Screen Negative Alcohol, Quantitative Hepatitis A Ab Total Antibody pos Hep Bs Antigen Negative Hep Bs Antibody Hepatitis C Antibody Negative 04/01/17 10:24 WBC RBC Hgb Hct MCV MCH MCHC RDW Plt Count MPV Neut % (Auto) Lymph % (Auto) [place] % (Auto) Eos % (Auto) Baso % (Auto) Neut # Lymph # [place] # Eos # Baso # Sodium Potassium Chloride Carbon Dioxide Anion Gap BUN Creatinine Est GFR ( Amer) Est GFR (Non-Af Amer) POC Glucose (mg/dL) Random Glucose Calcium Phosphorus Magnesium Total Bilirubin AST ALT Alkaline Phosphatase Total Protein Albumin Globulin Albumin/Globulin Ratio Urine Color Urine Clarity Urine pH Ur Specific [place] Urine Protein Urine Glucose (UA) Urine Ketones Urine Blood Urine Nitrate Urine Bilirubin Urine Urobilinogen Ur Leukocyte Esterase Urine WBC (Auto) Urine RBC (Auto) Urine Bacteria Urine Opiates Screen Urine Methadone Screen Ur Barbiturates Screen Carbamazepine 6.5 Ur Phencyclidine Scrn Ur Amphetamines Screen U Benzodiazepines Scrn U Oth Cocaine Metabols U Cannabinoids Screen Alcohol, Quantitative Hepatitis A Ab Total Hep Bs Antigen Hep Bs Antibody Hepatitis C Antibody Assessment & Plan (1) Seizure Assessment and Plan: The patient was therapeutic on carbamazepine, but phenobarbital level was pending. Will follow up. I recommend adding Vimpat 100 mg BID and continuing phenobarbital with a plan to titrate off of phenobarbital within the next month. If his levels are subtherapeutic, then we will just continue carbamazepine at current dose and Vimpat 100 mg BID. The patient is stable for discharge after confirming his levels and ensuring that he does not have a negative response to the new medication. Follow up with outpatient neurology is needed for tapering the phenobarbital. Thank you. Status: Acute
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
--- NOTE | 2017-04-01 19:13 | CARD ---
APPROVED REPORT EKG Measurement Heart [id number] <Conclusion> Normal sinus rhythm Normal ECG
--- NOTE | 2017-04-01 19:14 | CP.PCM.DIS ---
Provider - Provider Date of Admission: 03/31/17 22:18 Attending physician: Boris Milian MD Primary care physician: Dr. Thang Williamson Consults: Psychiatry Dr. Boyle Neurology Dr. Mariscal Time Spent in preparation of Discharge (in minutes): 40 Hospital Course - Lab Results Lab Results: Most Recent Lab Values WBC 9.0 K/uL (4.8-10.8) 04/01/17 06:28 RBC 5.14 Mil/uL (4.40-5.90) 04/01/17 06:28 Hgb 13.7 g/dL (12.0-18.0) 04/01/17 06:28 Hct 40.9 % (35.0-51.0) 04/01/17 06:28 MCV 79.6 fL (80.0-94.0) L 04/01/17 06:28 MCH 26.6 pg (27.0-31.0) L 04/01/17 06:28 MCHC 33.4 g/dL (33.0-37.0) 04/01/17 06:28 RDW 15.0 % (11.5-14.5) H 04/01/17 06:28 Plt Count 259 K/uL (130-400) 04/01/17 06:28 MPV 8.1 fL (7.2-11.7) 04/01/17 06:28 Neut % (Auto) 70.4 % (50.0-75.0) 04/01/17 06:28 Lymph % (Auto) 21.7 % (20.0-40.0) 04/01/17 06:28 [place] % (Auto) 6.1 % (0.0-10.0) 04/01/17 06:28 Eos % (Auto) 1.4 % (0.0-4.0) 04/01/17 06:28 Baso % (Auto) 0.4 % (0.0-2.0) 04/01/17 06:28 Neut # 6.3 K/uL (1.8-7.0) 04/01/17 06:28 Lymph # 1.9 K/uL (1.0-4.3) 04/01/17 06:28 [place] # 0.5 K/uL (0.0-0.8) 04/01/17 06:28 Eos # 0.1 K/uL (0.0-0.7) 04/01/17 06:28 Baso # 0.0 K/uL (0.0-0.2) 04/01/17 06:28 Sodium 136 mmol/L (132-148) 04/01/17 06:28 Potassium 3.7 mmol/L (3.6-5.2) 04/01/17 06:28 Chloride 104 mmol/L (98-107) 04/01/17 06:28 Carbon Dioxide 22 mmol/L (22-30) 04/01/17 06:28 Anion Gap 14 (10-20) 04/01/17 06:28 BUN 14 mg/dL (9-20) 04/01/17 06:28 Creatinine 0.8 mg/dL (0.8-1.5) 04/01/17 06:28 Est GFR ( Amer) > 60 04/01/17 06:28 Est GFR (Non-Af Amer) > 60 04/01/17 06:28 POC Glucose (mg/dL) 81 mg/dL (65-110) 03/31/17 21:12 Random Glucose 92 mg/dL (75-110) 04/01/17 06:28 Calcium 8.9 mg/dl (8.6-10.4) 04/01/17 06:28 Phosphorus 3.7 mg/dL (2.5-4.5) 04/01/17 06:28 Magnesium 1.9 mg/dL (1.6-2.3) 04/01/17 06:28 Total Bilirubin 0.3 mg/dL (0.2-1.3) 04/01/17 06:28 AST 28 U/L (17-59) 04/01/17 06:28 ALT 67 U/L (21-72) 04/01/17 06:28 Alkaline Phosphatase 83 U/L (38-126) 04/01/17 06:28 Total Protein 7.3 g/dL (6.3-8.3) 04/01/17 06:28 Albumin 3.7 g/dL (3.5-5.0) 04/01/17 06:28 Globulin 3.6 gm/dL (2.2-3.9) 04/01/17 06:28 Albumin/Globulin Ratio 1.0 (1.0-2.1) 04/01/17 06:28 Urine Color Yellow (YELLOW) 03/31/17 20:41 Urine Clarity Clear (Clear) 03/31/17 20:41 Urine pH 5.0 (5.0-8.0) 03/31/17 20:41 Ur Specific [place] 1.027 (1.003-1.030) 03/31/17 20:41 Urine Protein Negative mg/dL (NEGATIVE) 03/31/17 20:41 Urine Glucose (UA) Normal mg/dL (Normal) 03/31/17 20:41 Urine Ketones Negative mg/dL (NEGATIVE) 03/31/17 20:41 Urine Blood Negative (NEGATIVE) 03/31/17 20:41 Urine Nitrate Negative (NEGATIVE) 03/31/17 20:41 Urine Bilirubin Negative (NEGATIVE) 03/31/17 20:41 Urine Urobilinogen Normal mg/dL (0.2-1.0) 03/31/17 20:41 Ur Leukocyte Esterase Neg [place]/uL (Negative) 03/31/17 20:41 Urine WBC (Auto) 1 /hpf (0-5) 03/31/17 20:41 Urine RBC (Auto) 4 /hpf (0-3) H 03/31/17 20:41 Urine Bacteria Rare (<OCC) 03/31/17 20:41 Urine Opiates Screen Negative (NEGATIVE) 04/01/17 10:12 Urine Methadone Screen Negative (NEGATIVE) 04/01/17 10:12 Ur Barbiturates Screen Positive (NEGATIVE) 04/01/17 10:12 Carbamazepine 6.5 ug/mL (4.0-12.0) 04/01/17 10:24 Ur Phencyclidine Scrn Negative (NEGATIVE) 04/01/17 10:12 Ur Amphetamines Screen Negative (NEGATIVE) 04/01/17 10:12 U Benzodiazepines Scrn Negative (NEGATIVE) 04/01/17 10:12 U Oth Cocaine Metabols Positive (NEGATIVE) 04/01/17 10:12 U Cannabinoids Screen Negative (NEGATIVE) 04/01/17 10:12 Alcohol, Quantitative < 10 mg/dl (0-10) 03/31/17 20:16 Hepatitis A Ab Total Antibody pos (NEGATIVE) 04/01/17 06:28 Hep Bs Antigen Negative (NEGATIVE) 04/01/17 06:28 Hep Bs Antibody Positive (NEGATIVE) 04/01/17 06:28 Hepatitis C Antibody Negative (NEGATIVE) 04/01/17 06:28 - Hospital Course Hospital Course: Hospitalist Progress Note Patient was seen and examined at 8:40 AM ICU Bed #4 26 year old male who was admitted to the ICU 03/31/17 after he stated that he experienced a Seizure. States that he is compliant with his Seizure medications. CT Head showed NO acute intracranial hemorrhage/mass effect. He was recently released from assisted and was supposed to start mental health/ substance abuse program 04/01/17. Please see individual Assessment and Plans below for details. Currently upon FULL ROS: NO chest pain NO palpitations NO SOB/Cough NO dysphagia/odynophagia NO abdominal pain NO n/v/d/c (last bowel movement was yesterday and it was normal) NO new changes in vision NO new changes in hearing NO edema NO paresthesias Headache bifrontal last night States that dizziness comes and goes Exam: HEENT: NCA, EOMI, PERRLA, NO cervical lymphadenopathy, NO thyromegaly, NO pharyngeal erythema/exudate, Nasal turbinates are moist/nonerythematous/ nonedematous Cardio: NS1 and NS2, NO M/R/G Respiratory: CTA B/L, NO R/R/W GI: BSx4, Soft, NT, ND, NO HSM, Central ObesityNO guarding/rebound tenderness Ext: Pulses are strong and equal, Capillary Refill is 2 seconds, NO edema Neuro: CN II through XII are grossly intact. Assessment and Plan: 1). Seizure Carbemazepine 200 mg PO Q12H Phenobarbital 97.2 mg PO 2x/day CT Head 03/31/17 showed NO acute intracranial hemorrhage/mass effect Cleared for discharge by Neurology Dr. Mariscal. Please see discharge instructions below. Patient stated that he saw his PMD Dr. Williamson on [facility] earlier this month however patient could not provide contact information. I performed Google Search and Found Dr. Thang Williamson [phone] and spoke with Merle at the office and she confirmed that the patient was seen by Dr. Williamson 03/21/17 and that the patient is on the following medications at home: Clonidine 0.3 mg PO 1 tab 2x/day Tegretol ER 400 mg 1 tab PO 2x/day Phenobarbitol 97.2 mg PO 2x/day 2). Cocaine Abuse Urine Drug Screen positive for Cocaine Patient states that he does not do this anymore when I suggested to him that the possible cause of his off/on dizziness and seizure could be the Cocaine abuse. He stated that he does not do Cociane and he would like his UDS repeated and it has been ordered. 3). Anxiety/Depression Home medication list indicated that patient is on Sertraline 100 mg PO 1x/day and Klonopin 0.5 mg PO HS. However these were not on the medication list provided to me by his PMD office mentioned above. ICU Resident Dr. Mercado contacted patient's pharmacies ([facility]) to confirm these medications and both pharmacies have no record of any medications being dispensed to this patient. Psychatiry Dr. Boyle saw patient and has cleared patient. 4). Bipolar Disorder See Assessment and Plan #3. 5). Hx Substance Abuse See Assessment and Plan #2 6). HTN ICU resident will confirm medication with Pharmacy 7). Elevated ALT Now normalized 8). Prophylaxis Pepcid 20 mg PO 1x/day Bilateral SCDs The following instructions were explained to patient and to the ICU Resident Dr. Mercado to include in discharge instructions: 1). The following prescriptions were provided to you. Please have them filled at your pharmacy: Vimpat 100 mg, 1 tab PO 2x/day, Disp 60, NO refills Carbamazepine 200 mg, 1 tab PO 2x/day, Disp 60, NO refills Phenobarbital 97.2 mg, 1 tab PO 2x/day, Disp 60, NO refills Clonidine 0.3 mg, 1 tab PO 2x/day, Disp 60, NO refills Sertraline 100 mg, 1 tab 1x/day, Disp 30, NO refills 2). DO NOT TAKE KLONOPIN 3). Follow up with your Primary Care Physician Dr. Ian Williamson in the next 7 days. Through his office you will need to start tapering off of the phenobarbital as recommended by our Neurologist and for further coordination of your medical care. Sha Sher D.O. Discharge Exam - Head Exam Head Exam: ATRAUMATIC, NORMAL INSPECTION, NORMOCEPHALIC Discharge Plan - Follow Up Plan Condition: GUARDED Disposition: HOME/ ROUTINE Instructions: Cocaine Abuse (DC), Recurrent Seizures in Adults (DC) Additional Instructions: FF UP WITH OWN NEUROLOGIST DR. Irineo LOPEZ
[2017-04-03] MEDS ORDERED: Pneumococcal 23-Valent Vaccine IM ONE (10:00)
== END 2017-04-01 14:55 | disposition home or self-care (01) | DRG 889 ==
LOC: C.ER 19:24 → C.9I 22:18
PROVIDERS: ADMIT Internal Medicine; ATTEND Internal Medicine
DX: G40.409 Other generalized epilepsy and epileptic syndromes, not intractable, without status epilepticus (principal); F14.10 Cocaine abuse, uncomplicated; F20.0 Paranoid schizophrenia; I10 Essential (primary) hypertension; F17.210 Nicotine dependence, cigarettes, uncomplicated; F31.9 Bipolar disorder, unspecified; J45.909 Unspecified asthma, uncomplicated; Z79.899 Other long term (current) drug therapy